=== PATIENT | female | born 1950 | race Caucasian/White ===

== ENCOUNTER 2020-12-07 11:01 | Emergency (ER) | payer SELFPAY ==
[~2020-12-07] VITALS: Ht 170.2 cm; Wt 65.0 kg
--- NOTE | 2020-12-07 11:12 | NUR ---
JOAQUIN found laying outside a [address]11 next to vodka handle, 1/4 of it was gone. FSBS 76 received 250ml NS per ems. Fall precautions in place. Dr. Seals at bedside for eval.
--- NOTE | 2020-12-07 12:17 | NUR ---
PT SLEEPING IN NAD EVEN AND UNLABORED RESPIRATIONS, VSS.
--- NOTE | 2020-12-07 13:32 | NUR ---
PROVIDED LUNCH MEAL.
[2020-12-07 14:42] VITALS: BP 128/68
--- NOTE | 2020-12-07 14:46 | NUR ---
PT UP TO RESTROOM, AMBULATED WITHOUT DIFFICULTY, PT STATES SHE WANTS TO GO HOME.
== END 2020-12-07 15:28 | disposition home or self-care (01) ==
LOC: ED 15:20
DX: G31.2 Degeneration of nervous system due to alcohol (principal)
CPT/HCPCS: 99283

== ENCOUNTER 2021-01-10 17:59 | Emergency (ER) | payer OTHER ==
[~2021-01-10] VITALS: Ht 172.7 cm; Wt 65.0 kg
[2021-01-10 18:34] VITALS: BP 138/82
[2021-01-10 18:35] LABS: BASOPHILS % (AUTO) 1 % (0-1); EOSINOPHILS % (AUTO) 1 % (1-7); LYMPHOCYTES % (AUTO) 40 % (22-44); MEAN CORPUSCULAR HEMOGLOBIN 30.9 pg (27.0-34.8); MEAN CORPUSCULAR HGB CONC 33.5 g/dL (32.4-35.8); MEAN PLATELET VOLUME 6.7 fL (7.4-10.4); MONOCYTES % (AUTO) 11 % (2-9); NEUTROPHILS % (AUTO) 47 % (42-75); PLATELET COUNT 412 x10^3/uL (130-400); RED BLOOD COUNT 4.02 x10^6/uL (3.82-5.3); RED CELL DISTRIBUTION WIDTH 17.6 % (9.6-15.2)
[2021-01-10 18:48] LABS: ALANINE AMINOTRANSFERASE 22 U/L (12-78); ALBUMIN 3.5 g/dL (3.4-5.0); ANION GAP 11 mmol/L (5-15); CALCIUM 8.7 mg/dL (8.5-10.1); CHLORIDE 105 mmol/L (98-107); CREATININE 0.85 mg/dL (0.55-1.02); SALICYLATE LEVEL < 1.7 mg/dL (2.8-20.0)
[2021-01-10 18:50] LABS: ALKALINE PHOSPHATASE 72 U/L (45-117); BILIRUBIN,TOTAL 0.3 mg/dL (0.2-1.0); TOTAL PROTEIN 7.2 g/dL (6.4-8.2)
--- NOTE | 2021-01-10 19:01 | NUR ---
REPORT FROM MAGNOLIA
[2021-01-10] MEDS ORDERED: POTASSIUM CHLORIDE 20 MEQ TAB.ER.PRT ONE (19:24)
[2021-01-10] MEDS ORDERED: POTASSIUM CHLORIDE 20 MEQ TAB.ER.PRT PO ONE (19:30)
--- NOTE | 2021-01-10 19:46 | NUR ---
Patient given discharge instructions and they have confirmed that they understand the instructions. Patient ambulatory with steady gait. NAD, all questions answered appropriately, denies additional needs at this time. No personal belongings left in room after discharge. Taxi voucher provider upon d/c.
== END 2021-01-10 19:48 | disposition home or self-care (01) ==
LOC: ED 18:30
DX: F10.221 Alcohol dependence with intoxication delirium (principal); Y90.0 Blood alcohol level of less than 20 mg/100 ml
CPT/HCPCS: 36415; 80053; 80299; 80320; 80329; 85025; 99283; G0480

== ENCOUNTER 2021-01-24 21:17 | Emergency (ER) | payer OTHER ==
[~2021-01-24] VITALS: Ht 162.6 cm; Wt 70.0 kg
[2021-01-24 21:55] LABS: BASOPHILS % (AUTO) 2 % (0-1); EOSINOPHILS % (AUTO) 1 % (1-7); LYMPHOCYTES % (AUTO) 40 % (22-44); MEAN CORPUSCULAR HEMOGLOBIN 31.4 pg (27.0-34.8); MEAN CORPUSCULAR HGB CONC 33.8 g/dL (32.4-35.8); MEAN PLATELET VOLUME 6.5 fL (7.4-10.4); MONOCYTES % (AUTO) 10 % (2-9); NEUTROPHILS % (AUTO) 47 % (42-75); PLATELET COUNT 478 x10^3/uL (130-400); RED BLOOD COUNT 4.54 x10^6/uL (3.82-5.3); RED CELL DISTRIBUTION WIDTH 17.8 % (9.6-15.2)
[2021-01-24 22:03] LABS: ALANINE AMINOTRANSFERASE 31 U/L (12-78); ANION GAP 11 mmol/L (5-15); CALCIUM 9.1 mg/dL (8.5-10.1); CHLORIDE 111 mmol/L (98-107)
[2021-01-24 22:04] LABS: INTERNATIONAL NORMALIZED RATIO 1.01 (0.93-1.1); PROTHROMBIN TIME 10.8 Seconds (9.6-11.5)
[2021-01-24 22:05] LABS: ALKALINE PHOSPHATASE 79 U/L (45-117); BILIRUBIN,TOTAL 0.3 mg/dL (0.2-1.0); TOTAL PROTEIN 7.8 g/dL (6.4-8.2)
[2021-01-24 22:10] LABS: SALICYLATE LEVEL < 1.7 mg/dL (2.8-20.0)
--- NOTE | 2021-01-24 23:26 | NUR ---
PT WITH STEADY GAIT, AMBULATES INDEPENDENTLY TO NURSES STATION AND BACK TO ROOM. PT REQUESTING TO GO HOME. AWARE.
[2021-01-24 23:41] VITALS: BP 127/68
== END 2021-01-24 23:43 | disposition home or self-care (01) ==
LOC: ED 23:35
DX: F10.220 Alcohol dependence with intoxication, uncomplicated (principal); G92 Toxic encephalopathy; R41.0 Disorientation, unspecified; R06.89 Other abnormalities of breathing; Y90.0 Blood alcohol level of less than 20 mg/100 ml
CPT/HCPCS: 36415; 70450; 71045; 80053; 80299; 80320; 80329; 85025; 85610; 85730; 99285; G0480